=== PATIENT | male | born 1990 | race Hispanic/Latino ===

== ENCOUNTER 2017-12-24 14:41 | Observation (INO) | payer OTHER, SELFPAY ==
[2017-12-24] MEDS ORDERED: METHYLPREDNISOLONE 125 MG INJ ONE (15:01)
[2017-12-24] MEDS ORDERED: NA CHLORIDE 0.9% 1,000 ML ONE ×2 (15:01→21:49)
[2017-12-24 15:06] LABS: Absolute Lymphocytes (CBC) 1.7 K/uL (0.7-4.9); Absolute Monocytes 0.5 K/uL (0.1-1.3); Absolute Neutrophil 3.5 K/uL (1.8-8.0); Basophils % 0.7 % (0-1.3); Eosinophils % 1.2 % (0-4.4); Hematocrit 41.8 % (39.6-49.0); Lymphocytes % 29.2 % (15.3-44.8); MCH 32.1 pg (27.0-35.0); MCV 93.1 fL (80-100); MPV 8.8 fL (7.6-11.3); Monocytes % 8.6 % (3.3-12.3); RBC Red Blood Cell Count 4.49 M/uL (4.33-5.43)
[2017-12-24 15:06] LABS: Arterial Blood Carboxyhemoglob 0.6 % (0-1.5); Blood Gas Oxyhemoglobin 94.6 % (94-97); Blood O2 Saturation 96.2 % (92-98.5)
--- NOTE | 2017-12-24 15:24 | RAD REPORT ---
EXAM DESCRIPTION: Angel Single View12/24/2017 3:02 pm CLINICAL HISTORY: phosgene exposure COMPARISON: none FINDINGS: The lungs appear clear of acute infiltrate. The heart is normal size IMPRESSION: No acute abnormalities displayed
[2017-12-24 15:30] LABS: BUN Blood Urea Nitrogen 14 mg/dL (7-18); Bicarbonate 31 mmol/L (21-32); Glucose Level 97 mg/dL (74-106); Magnesium 2.6 mg/dL (1.8-2.4); Sodium Level 140 mmol/L (136-145)
[2017-12-24 15:32] LABS: Albumin 4.1 g/dL (3.4-5.0); Bilirubin Direct 0.1 mg/dL (0-0.2); Bilirubin Total 0.4 mg/dL (0.2-1.0); Protein, Total 7.3 g/dL (6.4-8.2)
[2017-12-24 15:34] LABS: NT PRO-BNP 7 pg/mL (<125); Troponin I < 0.02 ng/mL (0.0-0.045)
[2017-12-24 15:54] LABS: Urine Blood NEGATIVE (NEG); Urine Glucose NEGATIVE (NEG); Urine Protein NEGATIVE (NEG); Urine Specific Gravity 1.015 (1.005-1.030); Urine pH 7.5 (5.0-7.0)
--- NOTE | 2017-12-24 17:21 | ER ---
Nurse's Notes [facility] Name: Adrain Ennis Age: 27 yrs Sex: Male : 1990 Arrival Date: 12/24/2017 Time: 14:44 Bed 5 Private MD: Diagnosis: Contact with and (suspected) exposure to hazardous, chiefly nonmedicinal, chemicals-Phosgene Presentation: 12/24 14:45 Presenting complaint: EMS states: Pt was exposed to phosgene in gas form, pt was hb wearing SCB put was removed prior to entering decon shower. Pt was right next to the pipe when he was exposed. Pt denies SOB/CO/itching/burning/N/V. Pt in no respiratory distress. Badge shows zero ppm exposure measured. Transition of care: patient was not received from another setting of care. Onset of symptoms was December 24, 2017. Risk Assessment: Do you want to hurt yourself or someone else? Patient reports no desire to harm self or others. Initial Sepsis Screen: Does the patient meet any 2 criteria? No. Patient's initial sepsis screen is negative. Does the patient have a suspected source of infection? No. Patient's initial sepsis screen is negative. Care prior to arrival: stripped of all clothing and in decon shower for 30 minutes. 14:45 Method Of Arrival: EMS: [facility] hb 14:45 Acuity: SABA 2 hb Historical: - Allergies: 14:48 No Known Allergies; hb - Home Meds: 14:48 Vyvanse oral oral [Active]; hb - PMHx: 14:48 ADD/ADHD; hb - PSHx: 14:48 None; hb - Immunization history:: Adult Immunizations up to date. - Social history:: Smoking status: Patient/guardian denies using tobacco. - Ebola Screening: : No symptoms or risks identified at this time. Screenin:50 Abuse screen: Denies threats or abuse. Denies injuries from another. Nutritional hb screening: No deficits noted. Tuberculosis screening: No symptoms or risk factors identified. Fall Risk None identified. Assessment: 14:50 General: Appears in no apparent distress. Behavior is calm, cooperative. Pain: Denies hb pain. Neuro: Level of Consciousness is awake, alert, obeys commands, Oriented to person, place, time, situation. Cardiovascular: Heart tones S1 S2 present Capillary refill < 3 seconds Patient's skin is warm and dry. Respiratory: Airway is patent Trachea midline Respiratory effort is even, unlabored, Respiratory pattern is regular, symmetrical, Breath sounds are clear bilaterally. GI: No signs and/or symptoms were reported involving the gastrointestinal system. : No signs and/or symptoms were reported regarding the genitourinary system. EENT: No signs and/or symptoms were reported regarding the EENT system. Derm: No signs and/or symptoms reported regarding the dermatologic system. Skin is intact, is healthy with good turgor, Skin is pink, warm \T\ dry. Musculoskeletal: No signs and/or symptoms reported regarding the musculoskeletal system. 15:29 Reassessment: Patient appears in no apparent distress at this time. No changes from hb previously documented assessment. Patient and/or family updated on plan of care and expected duration. Pain level reassessed. Patient is alert, oriented x 3, equal unlabored respirations, skin warm/dry/pink. 15:32 Reassessment: Pt placed on BIPAP 10/5, R12, 21% FIO2. hb 15:42 Reassessment: Dr. Pierce with Poison Control recommends conservative treatment: hb ausc, pulse ox, poss CXR, symptom management, 24hr obs with pulse ox. 17:15 Reassessment: Patient appears in no apparent distress at this time. No changes from la1 previously documented assessment. Patient and/or family updated on plan of care and expected duration. Pain level reassessed. Patient is alert, oriented x 3, equal unlabored respirations, skin warm/dry/pink. 18:11 Reassessment: Patient appears in no apparent distress at this time. No changes from sv previously documented assessment. Patient and/or family updated on plan of care and expected duration. Pain level reassessed. Patient is alert, oriented x 3, equal unlabored respirations, skin warm/dry/pink. 19:46 Reassessment: Patient and/or family updated on plan of care and expected duration. Pain bb level reassessed. Patient is alert, oriented x 3, equal unlabored respirations, skin warm/dry/pink. report called to Kate JEAN BAPTISTE for ICU overflow 4. Vital Signs: 14:47 BP 117 / 93; Pulse 56; Resp 16; Temp 97.9; Pulse Ox 97% on R/A; Pain 0/10; hb 15:00 Weight 90.72 kg; hb 15:31 BP 117 / 84; Pulse 64; Resp 16; Pulse Ox 100% on 21% BiPAP; hb 16:34 BP 123 / 68; Pulse 63; Resp 21; Pulse Ox 97% on R/A; sv 17:00 BP 118 / 57; Pulse 81; Resp 21; Pulse Ox 97% on R/A; sv 18:08 BP 122 / 60; Pulse 70 MON; Resp 17; Pulse Ox 97% on R/A; sv 18:36 BP 131 / 86; Pulse 71; Resp 20; Pulse Ox 98% ; sv 19:47 BP 132 / 80; Pulse 86; Resp 14 S; Pulse Ox 99% on R/A; bb 18:08 Sinus Rhythm sv ED Course: 14:44 Patient arrived in ED. hb 14:45 Ruiz Love PA is PHCP. cp 14:45 Chris Connor MD is Attending Physician. cp 14:45 Vanesa Kim, ITA is Primary Nurse. hb 14:47 Triage completed. hb 14:47 Arm band placed on right wrist. hb 14:47 EKG done, by management tech. reviewed by Ruiz MONDRAGON. at1 14:52 Initial lab(s) drawn, by il, sent to lab. Inserted saline lock: 20 gauge in right jb1 antecubital area, using aseptic technique. Blood collected. 15:03 XRAY Chest (1 view) In Process Unspecified. EDMS 17:15 Bed in low position. Call light in reach. Side rails up X 1. classroom monitor on. Pulse la1 ox on. NIBP on. 17:18 Zainab Huggins MD is Hospitalizing Provider. cp 17:34 BIPAP Sent. sv 18:03 Primary Nurse role handed off by Vanesa Kim, RN sv 18:03 Anna Marie Blum, ITA is Primary Nurse. sv 19:07 Report given to Katherine JEAN BAPTISTE and Dena JEAN BAPTISTE. sv 19:08 Primary Nurse role handed off by Anna Marie Blum, ITA sv 19:46 No provider procedures requiring assistance completed. Patient admitted, IV remains in bb place. Administered Medications: 15:04 Drug: SOLU-Medrol 125 mg Route: IVP; Site: right antecubital; sv 15:04 Drug: NS 0.9% 1000 ml Route: IV; Rate: 125 ml/hr; Site: right antecubital; sv 19:48 Follow up: IV Status: Infusion continued upon admission bb Output: 18:11 Urine: 600ml (Voided); Total: 600ml. sv Outcome: 17:20 Decision to Hospitalize by Provider. cp 19:48 Admitted to ICU accompanied by tech, via wheelchair, room 4, with chart, Report called bb to Kate JEAN BAPTISTE 19:48 Condition: stable 21:23 Patient left the ED. bb Signatures: Dispatcher [employer] EDMS Manuel Young jb1 Anna Marie Blum, RN RN Dena Panda RN RN bb Marina Bui, i&c tech EKG Tat1 Rafa Madsen RN RN la1 Ruiz Love, PA PA Vanesa Maldonado RN RN hb Corrections: (The following items were deleted from the chart) 14:50 14:45 Presenting complaint: EMS states: Pt was exposed to phosgene in gas form, pt was hb wearing SCB put was removed prior to entering decon shower. Pt was right next to the pipe when he was exposed. Pt denies SOB, Cp, any itching/burning. Pt in no respiratory distress. Badge shows zero ppm exposure measured. hb 15:33 15:31 BP 117 / 84; Pulse 64bpm; Resp 16bpm; Pulse Ox 100% 02 30% BiPAP; hb hb 15:33 15:32 Reassessment: Pt placed on BIPAP 10/5, R12, 30% FIO2 hb hb
--- NOTE | 2017-12-24 17:21 | EDPHYS ---
Physician Documentation [facility] Name: Adrian Ennis Age: 27 yrs Sex: Male : 1990 Arrival Date: 12/24/2017 Time: 14:44 Bed 5 Private MD: ED Physician Chris Connor HPI: 12/24 14:50 This 27 yrs old Male presents to ER via EMS with complaints of Chemical Exposure. cp 14:50 The patient or guardian reports exposure to aerosolized Phosgene while at work today. cp 14:50 Patient reports smelling chemical and that he was not wearing a protective mask. cp Patient reports sore throat that started prior to exposure. 14:50 Associated signs and symptoms: Pertinent positives: sore throat, Pertinent negatives: cp chest pain, diarrhea, fever, vomiting, abdominal pain. Severity of symptoms: in the emergency department the symptoms have improved mildly. Patient was stripped and placed in shower per [facility] decontamination protocol prior to arrival. Historical: - Allergies: 14:48 No Known Allergies; hb - Home Meds: 14:48 Vyvanse oral oral [Active]; hb - PMHx: 14:48 ADD/ADHD; hb - PSHx: 14:48 None; hb - Immunization history:: Adult Immunizations up to date. - Social history:: Smoking status: Patient/guardian denies using tobacco. - Ebola Screening: : No symptoms or risks identified at this time. ROS: 14:53 Constitutional: Negative for body aches, chills, fever, poor PO intake. cp 14:53 Eyes: Negative for injury, pain, redness, and discharge. cp 14:53 ENT: Positive for sore throat, Negative for drainage from ear(s), ear pain, difficulty swallowing, difficulty handling secretions. 14:53 Cardiovascular: Negative for chest pain, edema, palpitations. 14:53 Respiratory: Negative for cough, dyspnea on exertion, hemoptysis, shortness of breath, wheezing. 14:53 Abdomen/GI: Negative for abdominal pain, nausea, vomiting, and diarrhea, constipation, black/tarry stool, rectal bleeding. 14:53 Back: Negative for pain at rest, pain with movement. 14:53 : Negative for urinary symptoms. 14:53 Skin: Negative for cellulitis, rash. Exam: 14:49 ECG was reviewed by the Attending Physician. cp 14:57 Constitutional: The patient appears in no acute distress, alert, awake, cp non-diaphoretic, non-toxic, well developed, well nourished. 14:57 Head/Face: Normocephalic, atraumatic. Eyes: Pupils equal round and reactive to light, cp extra-ocular motions intact. Lids and lashes normal. Conjunctiva and sclera are non-icteric and not injected. Cornea within normal limits. Periorbital areas with no swelling, redness, or edema. ENT: Nares patent. No nasal discharge, no septal abnormalities noted. Tympanic membranes are normal and external auditory canals are clear. Oropharynx with no redness, swelling, or masses, exudates, or evidence of obstruction, uvula midline. Mucous membranes moist. Neck: Trachea midline, no thyromegaly or masses palpated, and no cervical lymphadenopathy. Supple, full range of motion without nuchal rigidity, or vertebral point tenderness. No Meningismus. Chest/axilla: Normal chest wall appearance and motion. Nontender with no deformity. No lesions are appreciated. 14:57 Cardiovascular: Rate: bradycardic, Rhythm: regular, Heart sounds: murmur, not appreciated, rub, not appreciated, gallop, not appreciated, Edema: is not appreciated, JVD: is not appreciated. 14:57 Respiratory: the patient does not display signs of respiratory distress, Respirations: normal, no use of accessory muscles, no retractions, no splinting, no tachypnea, labored breathing, is not present, Breath sounds: are clear throughout, no decreased breath sounds, no stridor, no wheezing. 14:57 Abdomen/GI: Inspection: abdomen appears normal, Palpation: abdomen is soft and non-tender, in all quadrants, rebound tenderness, is not appreciated, involuntary guarding, is not appreciated. 14:57 Back: pain, is absent, ROM is normal. 14:57 Skin: cellulitis, is not appreciated, no rash present. 14:57 Neuro: Orientation: to person, place \T\ time. Mentation: lucid, able to follow commands, Cerebellar function: is grossly normal, Motor: moves all fours, strength is normal, Sensation: is normal. Vital Signs: 14:47 BP 117 / 93; Pulse 56; Resp 16; Temp 97.9; Pulse Ox 97% on R/A; Pain 0/10; hb 15:00 Weight 90.72 kg; hb 15:31 BP 117 / 84; Pulse 64; Resp 16; Pulse Ox 100% on 21% BiPAP; hb 16:34 BP 123 / 68; Pulse 63; Resp 21; Pulse Ox 97% on R/A; sv 17:00 BP 118 / 57; Pulse 81; Resp 21; Pulse Ox 97% on R/A; sv 18:08 BP 122 / 60; Pulse 70 MON; Resp 17; Pulse Ox 97% on R/A; sv 18:36 BP 131 / 86; Pulse 71; Resp 20; Pulse Ox 98% ; sv 19:47 BP 132 / 80; Pulse 86; Resp 14 S; Pulse Ox 99% on R/A; bb 18:08 Sinus Rhythm sv MDM: 14:46 Patient medically screened. cp 15:00 Differential diagnosis: ARDS, respiratory distress, inhalation injury, pneumonia. cp 16:00 Data reviewed: vital signs, nurses notes, lab test result(s), EKG, radiologic studies, cp plain films. 16:00 Test interpretation: by ED physician or midlevel provider: ECG, plain radiologic cp studies. 12/24 14:46 Order name: CBC with Diff; Complete Time: 15:43 cp 12/24 15:44 Interpretation: Reviewed. 12/24 14:46 Order name: BMP; Complete Time: 15:43 cp 12/24 15:58 Interpretation: Reviewed. 12/24 14:46 Order name: Magnesium; Complete Time: 15:43 cp 12/24 15:43 Interpretation: MG 2.6; Reviewed. 12/24 14:46 Order name: ABG; Complete Time: 15:43 cp 12/24 15:43 Interpretation: Reviewed. cp 12/24 14:47 Order name: BNP; Complete Time: 15:43 cp 12/24 14:52 Order name: Troponin I; Complete Time: 15:43 cp 12/24 14:47 Order name: XRAY Chest (1 view); Complete Time: 15:43 cp 12/24 14:53 Order name: LFT's; Complete Time: 15:43 cp 12/24 15:25 Order name: Urine Dipstick--Ancillary (enter results); Complete Time: 15:57 hb 12/24 15:58 Interpretation: Normal except: UPH 7.5. cp 10/16 17:34 Order name: BIPAP sv 12/24 18:13 Order name: Basic Metabolic Panel EDMS 12/24 18:13 Order name: Basic Metabolic Panel EDMS 12/24 18:13 Order name: Magnesium EDMS 12/24 18:13 Order name: Magnesium EDMS 12/24 14:46 Order name: IV; Complete Time: 14:52 cp 12/24 14:46 Order name: EKG; Complete Time: 14:47 cp 12/24 14:46 Order name: EKG - Nurse/Tech; Complete Time: 14:52 cp 12/24 18:13 Order name: Regular EDMS 12/24 18:14 Order name: Respiratory Therapy Consult EDMS EC:49 Rate is 67 beats/min. Rhythm is regular. VT interval is normal. QRS interval is cp prolonged at 114 msec. QT interval is normal. T waves are Inverted in lead III. Interpreted by me. Reviewed by me. Administered Medications: 15:04 Drug: SOLU-Medrol 125 mg Route: IVP; Site: right antecubital; sv 15:04 Drug: NS 0.9% 1000 ml Route: IV; Rate: 125 ml/hr; Site: right antecubital; sv 19:48 Follow up: IV Status: Infusion continued upon admission bb Disposition: 12/25 07:24 Co-signature as Attending Physician, Chris Connor MD. rn Disposition: 12/24/17 17:20 Hospitalization ordered by Zainab Huggins for Observation. Preliminary diagnosis is Contact with and (suspected) exposure to hazardous, chiefly nonmedicinal, chemicals - Phosgene. - Bed requested for Intensive Care Unit. - Status is Observation. bb - Condition is Stable. - Problem is new. - Symptoms have improved. UTI on Admission? No Signatures: Dispatcher [employer] EDMS Anna Marie Blum RN RN sv Woody, Diana, RN RN dw Ballard, Brenda, RN RN bb Nieto, Roman, MD MD rn Page, Corey, PA PA cp Baxter, Heather, RN RN Corrections: (The following items were deleted from the chart) 12/24 17:22 17:20 Hospitalization Ordered by Zainab Huggins MD for Observation. Preliminary diagnosis cp is Contact with and (suspected) exposure to hazardous, chiefly nonmedicinal, chemicals. Bed requested for Telemetry/MedSurg (observation). Status is Observation. Condition is Stable. Problem is new. Symptoms have improved. UTI on Admission? No. cp 19:22 17:22 12/24/2017 17:20 Hospitalization Ordered by Zainab Huggins MD for Observation. dw Preliminary diagnosis is Contact with and (suspected) exposure to hazardous, chiefly nonmedicinal, chemicals - Phosgene. Bed requested for Telemetry/MedSurg (observation). Status is Observation. Condition is Stable. Problem is new. Symptoms have improved. UTI on Admission? No. cp 21:23 19:22 12/24/2017 17:20 Hospitalization Ordered by Zainab Huggins MD for Observation. bb Preliminary diagnosis is Contact with and (suspected) exposure to hazardous, chiefly nonmedicinal, chemicals - Phosgene. Bed requested for Intensive Care Unit. Status is Observation. Condition is Stable. Problem is new. Symptoms have improved. UTI on Admission? No. dw
[2017-12-24] MEDS ORDERED: ACETAMINOPHEN 500 MG TAB PO PRN (18:10)
[2017-12-24] MEDS ORDERED: ONDANSETRON 4 MG/2 ML VIAL IV PRN (18:10)
[2017-12-24] MEDS: NA CHLORIDE 0.9% 1,000 ML IV SCH (21:45)
[2017-12-24] MEDS: ENOXAPARIN 40 MG/0.4 ML SQ SCH (21:45)
[2017-12-24] MEDS ORDERED: ENOXAPARIN 40 MG/0.4 ML SQ ONE (21:49)
[2017-12-24 23:17] VITALS: BMI 30.4
--- NOTE | 2017-12-25 05:14 | HP ---
Date of Admission: 12/24/2017 Chief Complaint: Exposure to phosgene gas at [employer], chest tightness, throat irritation, shortness of breath. History Of Present Illness: The patient is a 27-year-old male with past medical history of ADHD, who takes Vyvanse. Works at [employer], was exposed to the phosgene gas. The patient states th at he started coughing, could taste it in his mouth, became short of breath, has some chest tightness . The patient therefore was brought in for further evaluation postexposure. The patient's badge red Zero Parts per Million of Exposure. The patient was also decontaminated at site. The patient's symp toms are constant, moderate, and progressively worsening. Therefore, the patient was referred for ad mission. The patient was initially on BiPAP, however, with his symptoms improving he was able to be taken off. When seen in the ER, he was awake, alert, oriented x3, not in any acute distress. Past Medical History: ADHD. Past Surgical History: None. Allergies: NO KNOWN DRUG ALLERGIES. Medications: The patient takes Vyvanse. Family History: The patient denies any history of premature coronary artery disease, diabetes, or hy pertension in the family. Social History: The patient denies any tobacco use or illicit drug use. Does report drinking 3-4 ti mes a week. Review of Systems: An 11-point system reviewed, negative except as per HPI. Physical Examination: Vital Signs: Blood pressure 117/93, pulse 56, respirations 16, temperature 97.9, O2 97% on room air. General: Awake, alert, oriented x3, not in any acute distress. HEENT: Normocephalic, atraumatic. PERRLA, EOMI. Moist mucous membranes. Oropharynx is clear. Con junctivae anicteric. Neck: Supple. No JVD. Trachea midline. CV: S1, S2. No murmurs. Regular rate and rhythm. Peripheral pulses present. Respiratory: Moving air well bilaterally. No wheezing. No stridor. No use of accessory muscles. G astrointestinal: Abdomen is soft, nontender, nondistended. Positive bowel sounds. No guarding or r igidity. Extremities: No clubbing, cyanosis, or edema. No calf tenderness. Neuro: Cranial nerves 2 through 12 intact grossly. No focal neurological deficit. Speech is normal . Strength is 5/5 bilateral in upper and lower extremities. Sensation intact to light touch. Skin: No rashes. Normal skin turgor. Psych: Mood is somewhat anxious. Affect is full. Insight and judgment are good. Laboratory Data: Sodium 140, potassium 4, chloride 105, CO2 31, BUN 14, creatinine 1, glucose 97, ca lcium 9, magnesium 2.6. Troponin less than 0.02. BNP 7. ABG; pH 7.41, pCO2 44.7, pO2 89, bicarb 27 . UA is negative. WBC 5.9, H and H 14.4 and 41.8, platelets 223, neutrophils 60%. Chest x-ray show s no acute infiltrate. Assessment And Plan: A 27-year-old male with: 1.Unintentional exposure to hazardous chemical with phosgene gas. We will continue to monitor for r espiratory distress, pulmonary edema. The patient decontaminated at exposure site. Continue support chito care, now off BiPAP. 2.Shortness of breath, resolved. Continue supplemental oxygen as needed. 3.History of attention deficit hyperactivity disorder, on Vyvanse. Plan: Admit the patient to Med-Surg, place as observation. Continue to monitor closely for the next 24-48 hours. Specialists for [employer] is at [facility], Dr. Johnston, who recomm ends observation at this facility for now. Transfer if condition deteriorates. SA/MODL Voice ID: [id number]
[2017-12-25 05:18] LABS: BUN Blood Urea Nitrogen 14 mg/dL (7-18); Bicarbonate 25 mmol/L (21-32); Glucose Level 151 mg/dL (74-106); Magnesium 2.2 mg/dL (1.8-2.4); Potassium 4.1 mmol/L (3.5-5.1); Sodium Level 140 mmol/L (136-145)
[2017-12-25] MEDS: NA CHLORIDE 0.9% 1,000 ML IV SCH (05:39)
[2017-12-25] MEDS ORDERED: NA CHLORIDE 0.9% 1,000 ML ONE (05:41)
--- NOTE | 2017-12-25 07:53 | EKG ---
Test Date: 2017-12-24 Test Time: 14:46:30 Heating And Air Conditioning Mechanic: ISAIAH MEASUREMENT RESULTS: Intervals: Rate: 67 NV: 148 QRSD: 114 QT: 388 QTc: 409 [place]: P: 27 NV: 148 QRS: -29 T: 16 INTERPRETIVE STATEMENTS: Normal sinus rhythm Normal ECG No previous ECG available for comparison Electronically Signed On 12-25-17 07:51:51 CDT by Garo Curry
[2017-12-25] MEDS ORDERED: METHYLPREDNISOLONE 125 MG INJ IV ONE (08:39)
[2017-12-25] MEDS: ENOXAPARIN 40 MG/0.4 ML SQ SCH (09:00)
[2017-12-25] MEDS ORDERED: ACETAMINOPHEN 500 MG TAB PO PRN (09:04)
[2017-12-25] MEDS ORDERED: ONDANSETRON 4 MG/2 ML VIAL IV PRN (09:07)
[2017-12-25] MEDS ORDERED: LISDEXAMFETAMINE DIMESYLATE 40 MG PO PRN (09:13)
[2017-12-25] MEDS ORDERED: NA CHLORIDE 0.9% 1,000 ML IV SCH (10:00)
[2017-12-25 13:45] VITALS: BP 132/56
[2017-12-25 13:47] VITALS: O2SAT 100
[2017-12-25 14:52] VITALS: TEMP 97.6
--- NOTE | 2017-12-26 06:02 | DS ---
Date of Discharge: 12/25/2017 Discharge Diagnoses: 1.Hazardous chemical exposure with phosgene. 2.Shortness of breath, resolved. 3.Attention deficit hyperactivity disorder, on Vyvanse. Hospital Course: The patient is a 27-year-old male who works at the [employer] and had an ex posure to phosgene gas. However, his badge read 0 parts per million. The patient had some coughing, nausea, shortness of breath, chest tightness, came into the ER for further evaluation. The patient' s respiratory status remained stable. He was initially placed on BiPAP as a precaution, however was able to be taken off, has done well over the course of the hospital stay, did not have any symptoms o f respiratory distress or pulmonary edema. No skin irritation. His lab work remained within normal limits. ABG was unremarkable. Chest x-ray showed no acute abnormalities. Discussion with flushing expert at [facility], Dr. Johnston, this patient's exposure was 0 and he was not inside the area where the gas was emanating from. He had been walking past the outside of the area; however, he did have symptoms and was observed. His badge reading was 0 parts per million. With no further symptom s, he was cleared for discharge. Medications: As per medication reconciliation list. Followup: With primary care physician and with Ortho-tag doctor upon discharge. Return to ER fo r worsening condition. Diet: Regular diet. Activity: As tolerated. Physical Examination: General: Awake, alert, oriented x3. No acute distress. CV: S1, S2. No murmurs. Respiratory: Clear to auscultation bilaterally. No wheezing or stridor. Gastrointestinal: Abdomen is soft, nontender, nondistended. Positive bowel sounds. Extremities: No clubbing, cyanosis, or edema. Neurologic: Nonfocal. Skin: No rashes. Normal skin turgor. SA/MODL Voice ID: [id number] Report ID: [id number]
[2017-12-26] MEDS ORDERED: ENOXAPARIN 40 MG/0.4 ML SQ SCH (09:00)
== END 2017-12-25 14:10 | disposition home or self-care (01) ==
LOC: ER 14:41 → UNDOADMOB 17:20 → 3RD-ICU 17:20 → OBSVTOIN 12-25 11:03 → INTOOBSV 12-25 11:03
PROVIDERS: ADMIT Family Medicine; ATTEND Family Medicine
DX: Z57.5 Occupational exposure to toxic agents in other industries (principal); R06.02 Shortness of breath; F90.9 Attention-deficit hyperactivity disorder, unspecified type
CPT/HCPCS: 36415; 71045; 80048; 80076; 81003; 82805; 83735; 83880; 84484; 85025; 93005; 94660; 96361; 96374; 99285; G0378; J1650; J2930; J7030